=== PATIENT | male | born 1975 | race Caucasian/White ===

== ENCOUNTER 2020-02-21 16:25 | Emergency (ER) | payer SELFPAY ==
[2020-02-21 16:31] VITALS: BP 134/86; PULSE 77; RESP 16; TEMP 36.6; O2SAT 99; BMI 25.1
--- NOTE | 2020-02-21 16:36 | USR_ITS ---
PROCEDURE INFORMATION: Exam: US Scrotum Exam date and time: 02/21/2020 4:40 PM Age: 44 years old Clinical indication: Scrotum pain; Patient HX: Pain started at midnight. PT states he has had this before but it always went away and has never been seen for it. ; Additional info: Testicular pain and swelling TECHNIQUE: Imaging protocol: Real-time ultrasound of the scrotum and contents with color Doppler and image documentation. COMPARISON: No relevant prior studies available. FINDINGS: Right testicle: Normal. No mass. No torsion. Normal vascular flow. Right testicle measures 2.7 cm x 1.9 cm x 4.2 cm Left testicle: Normal. No mass. No torsion. Normal vascular flow. Left testicle measures 4.5 cm x 3 cm x 2.1 cm Epididymides: Left spermatocele 3.6 mm by 2 mm x 2.5 mm the left epididymis head measures 0.86 cm x 1.1 cm. The right epididymis measures 7.8 mm x 9.8 mm Scrotum: Bilateral hydrocele larger in volume on the left side. There is debris present within the left hydrocele. US/US scrotum [id number] IMPRESSION: 1. Negative for intrinsic testicular abnormalities. 2. Small left epididymal head cyst. 3. Bilateral hydrocele as described
--- NOTE | 2020-02-21 16:49 | W.ED.MALEGU ---
Documented by User: Abdiel George DO 02/24/20 09:07 HPI - Male Genitourinary General: Chief complaint: Urogenital-Male Stated complaint: ACUTE TESTICULAR PAIN/SENT FROM URGENT CARE Time Seen by Provider: 02/21/20 16:42 PFS ED PFSH: Social History Smoking and tobacco status: never smoked Current gender identity: Male Course Vital Signs: Vital signs: Vital Signs Temperature 97.8 F 02/21/20 16:31 Pulse Rate 67 02/21/20 19:07 Respiratory Rate 17 02/21/20 19:07 Blood Pressure 125/80 02/21/20 19:07 Pulse Oximetry 99 02/21/20 19:07 MDM - Male MDM Narrative: Medical decision making narrative: Patient assigned to me. I did not see the patient he was seen by Mor Brumfield and Dr. Herrera please see their notes. Lab Data: Labs: Lab Results 02/21/20 02/21/20 02/21/20 Range/Units 16:49 16:49 17:15 WBC 6.4 (4.0-10.0) 10^3/ uL RBC 4.65 (4.1-5.3) 10^6/u L Hgb 13.5 (11.7-16.6) g/dL Hct 41.3 L (42.0-52.0) % MCV 88.8 (80-94) fL MCH 29.0 (28.0-34.0) pg MCHC 32.7 (30.0-36.0) g/dL RDW 13.2 (12.1-15.1) % Plt Count 261 (130-400) 10^3/c mm MPV 9.3 (7.4-10.4) fL Neut % (Auto) 41.4 % Lymph % (Auto) 49.6 % [place] % (Auto) 7.1 % Eos % (Auto) 1.1 % Baso % (Auto) 0.6 % Neut # (Auto) 2.6 (1.8-7.7) 10^3/u L Lymph # (Auto) 3.2 (0.8-4.8) 10^3/u L [place] # (Auto) 0.5 (0.2-0.9) 10^3/u L Eos # (Auto) 0.1 (0.0-0.8) 10^3/u L Baso # (Auto) 0.0 (0.0-0.1) 10^3/u L Nucleated RBC % (a uto) 0 % Nucleated RBCs # 0.0 /100WBC Sodium 139 (136-145) mmol/L Potassium 4.1 (3.5-5.1) mmol/L Chloride 101 (98-107) mmol/L Carbon Dioxide 24 (22-29) mmol/L Anion Gap 18.1 (5-19) BUN 15 (6-20) mg/dL Creatinine 0.9 (0.7-1.2) mg/dL GFR Calculation 92.5 (90-130) mL/min Glucose 103 (65-115) mg/dL Calculated Osmolal ity 285 (285-295) mOsm/k g Calcium 9.8 (8.5-10.5) mg/dL Total Bilirubin 0.3 (0.15-1.2) mg/dL AST 14 (0-40) U/L ALT 12 (0-41) U/L Alkaline Phosphata se 65 (40-130) IU/L Total Protein 7.6 (6.6-8.7) g/dL Albumin 4.6 (3.5-5.2) g/dL Globulin 3.0 (1.3-4.6) g/dL Urine Color Yellow (Yellow) Urine Appearance Clear (CLEAR) Urine pH 7 (5-7) Ur Specific Gravit y 1.005 (1.005-1.030) Urine Protein Neg (Negative) Urine Glucose (UA) Norm (Normal) Urine Ketones Negative (Negative) Urine Blood Neg (Negative) Urine Nitrate Negative (Negative) Urine Bilirubin Neg (NEGATIVE) Urine Urobilinogen Norm (Negative) mg/dL Ur Leukocyte Kim ase Negative (Negative) Urine RBC None (0-2) /hpf Urine WBC None (0-5) /hpf Ur Squamous Epith Cells Rare (0-5) Urine Bacteria None (NONE) Discharge Plan Discharge Patient Disposition: Home, Self-Care Clinical Impression: Epididymitis Condition: Stable Prescriptions: [place] 5-325 mg tablet 1 tab PO Q6H PRN (Reason: pain) 5 Days Qty: 20 RF: 0 Cipro 500 mg tablet 500 mg PO BID Qty: 20 RF: 0 No Action Aleve 220 mg Tablet 220 mg PO Q12H PRN (Reason: Pain) RF: 0 Discharge Orders: Discharge Order (Routine); Ordered 02/21/20 Ordered By: Leona Zhao Referrals: Deepak Bagley DO [Primary Care Provider] - 1-3 days Discharge Diet: Advance as tolerated Discharge Activity: Increase activity as tolerated Patient Instructions: Epididymitis (ED) Activity Restrictions/Additional Instructions: Please return to the ER immediately for any of the signs or symptoms listed on your discharge instruction sheets, worsening/changing of your symptoms, you are not getting better as quickly as expected, or for ANY other cause or concerns. Discharge Date/Time: 02/21/20 19:08 Coding Level of Care Code ED Environmental Project Manager for Chg Fwd Exam Comprehensive Documented by User: Leona Zhao 02/21/20 19:44 HPI - Male Genitourinary General: Chief complaint: Urogenital-Male Stated complaint: ACUTE TESTICULAR PAIN/SENT FROM URGENT CARE Time Seen by Provider: 02/21/20 16:42 History of Present Illness: HPI Narrative: Chris is a nice 44-year-old male who comes in complaining of left testicular pain. He has had similar pains in the past but no cause could ever be determined. He denies urinary frequency or urgency. He denies fevers or chills. His pain is primarily in the back of the left testicle. Otherwise he denies any skin rashes, fevers or any other complaints at this time. Associated symptoms: Deny dysuria, hematuria, nausea, urinary incontinence or vomiting Review of Systems General: Reports: other (negative unless marked) Const: Denies: fever, chills, body aches, fatigue, malaise or diaphoresis Eyes: Denies: change in vision or blurry vision ENMT: Denies: throat pain, painful swallowing, hoarseness, ear pain, ear discharge, Change in hearing or nasal discharge Card: Denies: chest pain, palpitations, irregular heart rhythm, syncope, pre-syncope, shortness of breath on exertion or shortness of breath when lying down Resp: Denies: shortness of breath, productive cough, non-productive cough, wheezing, coughing up blood or chest congestion GI: Denies: abdominal pain, nausea, vomiting, vomiting blood, coffee grounds in vomit, diarrhea, constipation, cramping, blood in stool or black tarry stool : Denies: flank pain, difficulty urinating, painful urination, urinary frequency, urinary urgency, decreased urine ouput, urinary incontinence or blood in urine Musc: Denies: neck pain, back pain, extremity pain, extremity swelling, joint pain, joint swelling, joint warmth or joint stiffness Skin/Breast: Denies: rash, skin tenderness or yellow skin Neuro: Denies: headache, numbness in extremities, weakness in extremities, changes in sensation, lack of coordination, difficulty walking, dizziness, vertigo or confusion Endo: Denies: excessive thirst, tired all the time, cold intolerance, excessive sweating, flushing or hot flashes Neftali/Lymph: Denies: easy bruising, easy bleeding, petechiae or enlarged lymph nodes All/Imm: Denies: hives, throat swelling, tongue swelling, facial swelling or acute wheezing PFSH ED PFSH: Social History Smoking and tobacco status: never smoked Current gender identity: Male Physical Exam Const: COMMON NORMALS: no apparent distress, oriented x3, no limitations, healthy appearing and well nourished EXAM LIMITATIONS: no altered mental status GENERAL APPEARANCE: cooperative, well kempt and well developed ORIENTATION/CONSCIOUSNESS: Yes awake HENMT: COMMON NORMALS: normocephalic, head/scalp atraumatic, hearing grossly normal bilaterally, external ears normal, EAC's normal, external nose normal and moist oral mucous membranes HEAD & SCALP: normal to inspection, normocephalic and atraumatic FACE & SINUS: normal facial exam and face symmetric NOSE: external nose normal and nares normal EXTERNAL EAR: Yes external ears normal EXTERNAL AUDITORY CANAL: EAC's normal MOUTH: oral and palatal mucosa normal and tongue normal Eye: COMMON NORMALS: PERRL, EOMs intact bilaterally, conjunctivae normal and no scleral icterus GENERAL EYE: normal appearance of both eyes and normal light reflex CONJUNCTIVA: Yes conjunctivae normal SCLERA: sclerae normal CORNEA: Yes corneas normal PUPIL: Yes PERRL DIRECT OPHTHALMOSCOPY: Yes normal light reflex Neck/C-Spine: COMMON NORMALS: full ROM, no lymphadenopathy, supple, no meningeal signs and no JVD GENERAL: Yes normal visual inspection and Yes trachea midline CERVICAL SPINE: Yes cervical ROM normal Chest: COMMONS NORMALS: inspection of chest normal and palpation of chest normal Resp: COMMON NORMALS: normal respiratory effort, no retractions, no use of accessory muscles and clear to auscultation bilaterally EFFORT & INSPECTION: Yes able to speak in complete sentences AUSCULTATION: clear to auscultation bilaterally Cardio: COMMON NORMALS: no JVD, regular rate, regular rhythm, S1 normal heart sound, S2 normal heart sound, no gallops, no clicks, no murmurs and no rub JUGULAR VENOUS DISTENTION: no JVD RATE: regular rate RHYTHM: regular rhythm HEART SOUNDS: S1 normal and S2 normal GI: COMMON NORMALS: soft to palpation, non-tender, no hepatosplenomegaly and no masses INSPECTION: Yes normal to inspection PALPATION: Yes soft and Yes no hepatosplenomegaly : COMMON NORMALS: Yes no CVA tenderness BLADDER/KIDNEY EXAM: Yes no CVA tenderness MALE GROIN/PERINEUM EXAM: No erythema and No inguinal lymphadenopathy PENIS: normal penis MEATUS: meatus normal SCROTUM: Yes testes descended bilaterally, Yes cremasteric reflex present, No erythematous and No ecchymosis TESTES: Yes epididymal tenderness (Left-sided) Back/Pelvis: COMMON NORMALS: no CVA tenderness, thoracic and lumbar spine normal to inspection, no thoracic nor lumbar tenderness and thoraco-lumbar ROM normal Extremity: COMMON NORMALS: normal to inspection, full ROM, normal capillary refill, no joint enlargement, no clubbing, cyanosis or edema and no calf tenderness Neuro: COMMON NORMALS: oriented x3, CN's II-XII intact bilaterally, moves all extremities, no focal motor deficits and no sensory deficits noted MENINGEAL SIGNS: Yes no meningeal signs Psych: COMMON NORMALS: mental status grossly normal, thought process normal, cooperative, affect normal, speech normal and activity/motor behavior normal APPEARANCE: Yes well kempt SPEECH: Yes normal speech THOUGHT PROCESS: normal thought process Skin: COMMON NORMALS: no rashes or lesions noted, skin turgor normal, no jaundice, no petechiae and no mottling GENERAL SKIN EXAM: no rashes or lesions noted and turgor normal Course Vital Signs: Vital signs: Vital Signs Temperature 97.8 F 02/21/20 16:31 Pulse Rate 67 02/21/20 19:07 Respiratory Rate 17 02/21/20 19:07 Blood Pressure 125/80 02/21/20 19:07 Pulse Oximetry 99 02/21/20 19:07 MDM - Male MDM Narrative: Medical decision making narrative: Patient's exam and history are consistent with epididymitis. Ultrasound is inconclusive. I will go and treat him for epididymitis. He is aware that he will need to return if his symptoms worsen but at this time I see no sign of testicular torsion or other acute life-threatening illness. Lab Data: Attestation: I reviewed the patient's lab results. Labs: Lab Results 02/21/20 02/21/20 02/21/20 Range/Units 16:49 16:49 17:15 WBC 6.4 (4.0-10.0) 10^3/ uL RBC 4.65 (4.1-5.3) 10^6/u L Hgb 13.5 (11.7-16.6) g/dL Hct 41.3 L (42.0-52.0) % MCV 88.8 (80-94) fL MCH 29.0 (28.0-34.0) pg MCHC 32.7 (30.0-36.0) g/dL RDW 13.2 (12.1-15.1) % Plt Count 261 (130-400) 10^3/c mm MPV 9.3 (7.4-10.4) fL Neut % (Auto) 41.4 % Lymph % (Auto) 49.6 % [place] % (Auto) 7.1 % Eos % (Auto) 1.1 % Baso % (Auto) 0.6 % Neut # (Auto) 2.6 (1.8-7.7) 10^3/u L Lymph # (Auto) 3.2 (0.8-4.8) 10^3/u L [place] # (Auto) 0.5 (0.2-0.9) 10^3/u L Eos # (Auto) 0.1 (0.0-0.8) 10^3/u L Baso # (Auto) 0.0 (0.0-0.1) 10^3/u L Nucleated RBC % (a uto) 0 % Nucleated RBCs # 0.0 /100WBC Sodium 139 (136-145) mmol/L Potassium 4.1 (3.5-5.1) mmol/L Chloride 101 (98-107) mmol/L Carbon Dioxide 24 (22-29) mmol/L Anion Gap 18.1 (5-19) BUN 15 (6-20) mg/dL Creatinine 0.9 (0.7-1.2) mg/dL GFR Calculation 92.5 (90-130) mL/min Glucose 103 (65-115) mg/dL Calculated Osmolal ity 285 (285-295) mOsm/k g Calcium 9.8 (8.5-10.5) mg/dL Total Bilirubin 0.3 (0.15-1.2) mg/dL AST 14 (0-40) U/L ALT 12 (0-41) U/L Alkaline Phosphata se 65 (40-130) IU/L Total Protein 7.6 (6.6-8.7) g/dL Albumin 4.6 (3.5-5.2) g/dL Globulin 3.0 (1.3-4.6) g/dL Urine Color Yellow (Yellow) Urine Appearance Clear (CLEAR) Urine pH 7 (5-7) Ur Specific Gravit y 1.005 (1.005-1.030) Urine Protein Neg (Negative) Urine Glucose (UA) Norm (Normal) Urine Ketones Negative (Negative) Urine Blood Neg (Negative) Urine Nitrate Negative (Negative) Urine Bilirubin Neg (NEGATIVE) Urine Urobilinogen Norm (Negative) mg/dL Ur Leukocyte Kim ase Negative (Negative) Urine RBC None (0-2) /hpf Urine WBC None (0-5) /hpf Ur Squamous Epith Cells Rare (0-5) Urine Bacteria None (NONE) Imaging Data: US: My impression: Ultrasound scrotum, technologist interpretation -no torsion. Increased blood flow to the left epididymis. Small hydrocele and small spermatocele. Discharge Plan Discharge Patient Disposition: Home, Self-Care Clinical Impression: Epididymitis Condition: Stable Prescriptions: [place] 5-325 mg tablet 1 tab PO Q6H PRN (Reason: pain) 5 Days Qty: 20 RF: 0 Cipro 500 mg tablet 500 mg PO BID Qty: 20 RF: 0 No Action Aleve 220 mg Tablet 220 mg PO Q12H PRN (Reason: Pain) RF: 0 Discharge Orders: Discharge Order (Routine); Ordered 02/21/20 Ordered By: Leona Zhao Referrals: Deepak Bagley DO [Primary Care Provider] - 1-3 days Discharge Diet: Advance as tolerated Discharge Activity: Increase activity as tolerated Patient Instructions: Epididymitis (ED) Activity Restrictions/Additional Instructions: Please return to the ER immediately for any of the signs or symptoms listed on your discharge instruction sheets, worsening/changing of your symptoms, you are not getting better as quickly as expected, or for ANY other cause or concerns. Discharge Date/Time: 02/21/20 19:08 Coding Level of Care Code ED Environmental Project Manager for Amber Fwd Exam Comprehensive
[2020-02-21 16:55] LABS: Basophils % 0.6 %; Eosinophils # 0.1 10^3/uL (0.0-0.8); Eosinophils % 1.1 %; Hematocrit 41.3 % (42.0-52.0); Hemoglobin 13.5 g/dL (11.7-16.6); Lymphocytes # 3.2 10^3/uL (0.8-4.8); Lymphocytes % 49.6 %; Mean Corpuscular HGB Conc 32.7 g/dL (30.0-36.0); Mean Corpuscular Volume 88.8 fL (80-94); Mean Platelet Volume 9.3 fL (7.4-10.4); Monocytes # 0.5 10^3/uL (0.2-0.9); Monocytes % 7.1 %; Neutrophils # 2.6 10^3/uL (1.8-7.7); Neutrophils % 41.4 %; Nucleated Red Blood Cells % 0 %; Platelet Count 261 10^3/cmm (130-400); Red Blood Count 4.65 10^6/uL (4.1-5.3); Red Cell Distribution Width 13.2 % (12.1-15.1); White Blood Count 6.4 10^3/uL (4.0-10.0)
[2020-02-21 17:12] LABS: Alanine Aminotransferase 12 U/L (0-41); Albumin Level 4.6 g/dL (3.5-5.2); Alkaline Phosphatase 65 IU/L (40-130); Anion Gap 18.1 (5-19); Aspartate Amino Transferase 14 U/L (0-40); Blood Urea Nitrogen 15 mg/dL (6-20); Calcium 9.8 mg/dL (8.5-10.5); Carbon Dioxide 24 mmol/L (22-29); Chloride 101 mmol/L (98-107); Glomerular Filtration Rate 92.5 mL/min (90-130); Glucose 103 mg/dL (65-115); Osmolality Calculated 285 mOsm/kg (285-295); Potassium 4.1 mmol/L (3.5-5.1); Sodium 139 mmol/L (136-145); Total Bilirubin 0.3 mg/dL (0.15-1.2); Total Protein 7.6 g/dL (6.6-8.7)
[2020-02-21 17:50] LABS: Bilirubin Urine Neg (NEGATIVE); Blood Urine Neg (Negative); Glucose Urine UA Norm (Normal); Ketones Urine Negative (Negative); Leukocyte Esterase Urine Negative (Negative); Nitrate Urine Negative (Negative); Protein Urine Neg (Negative); Specific Gravity, Urine 1.005 (1.005-1.030); Urine Appearance Clear (CLEAR); Urine Color Yellow (Yellow); Urobilinogen Urine Norm (Negative); pH Urine 7 (5-7)
[2020-02-21 17:54] LABS: Squamous Epithelial Cell Urine RARE (0-5)
[2020-02-21 17:55] LABS: Add Urine Culture? No
[2020-02-21] MEDS: ciprofloxacin 500 mg Tablet PO (18:46)
[2020-02-21] MEDS: ondansetron 4 MG Tablet PO (18:46)
[2020-02-21] MEDS: HYDROcodone-acetaminophen 5-325 mg Tablet 1 TAB PO (18:47)
[2020-02-21] MEDS: ibuprofen 200 mg Tablet PO (18:47)
[2020-02-21 19:07] VITALS: BP 125/80; PULSE 67; RESP 17; O2SAT 99
== END 2020-02-21 19:08 | disposition home or self-care (01) ==
PROVIDERS: Physician Assistant; Emergency Provider Emergency Medicine; Family Provider Electrodiagnostic Medicine; PCP Electrodiagnostic Medicine
DX: N45.1 Epididymitis (principal); N43.3 Hydrocele, unspecified; N43.41 Spermatocele of epididymis, single
CPT/HCPCS: 12345; 36415; 76870; 80053; 81001; 85025; 87491; 87591; 99283; A9270; Q0162

== ENCOUNTER → 2020-03-02 14:05 | Outpatient (BNVA) | payer OTHER, SELFPAY | PROVIDERS: Family Provider Electrodiagnostic Medicine; PCP Electrodiagnostic Medicine; Visit Provider Counselor Professional | DX: F41.1 Generalized anxiety disorder (principal) | CPT/HCPCS: 90834 ==

== ENCOUNTER → 2020-04-07 11:08 | Outpatient (BNVA) | payer OTHER, SELFPAY | PROVIDERS: Family Provider Electrodiagnostic Medicine; PCP Electrodiagnostic Medicine; Visit Provider Counselor Professional | DX: F41.1 Generalized anxiety disorder (principal) | CPT/HCPCS: 90832 ==

== ENCOUNTER → 2024-11-01 16:00 | Outpatient (BNVA) | payer OTHER, SELFPAY | PROVIDERS: Family Provider Electrodiagnostic Medicine; PCP Electrodiagnostic Medicine; Visit Provider Emergency Medicine | DX: S69.92XA Unspecified injury of left wrist, hand and finger(s), initial encounter (principal); M20.029 Boutonniere deformity of unspecified finger(s); X58.XXXA Exposure to other specified factors, initial encounter | CPT/HCPCS: 73130 ==

== ENCOUNTER → 2025-08-16 12:41 | Outpatient (BNVA) | payer OTHER, SELFPAY | PROVIDERS: Family Provider Electrodiagnostic Medicine; PCP Electrodiagnostic Medicine; Visit Provider Nurse Practitioner | DX: M25.522 Pain in left elbow (principal); S59.902A Unspecified injury of left elbow, initial encounter; X58.XXXA Exposure to other specified factors, initial encounter | CPT/HCPCS: 73080 ==

== ENCOUNTER 2025-08-18 15:28 | Outpatient (CLI) | payer OTHER, SELFPAY ==
--- NOTE | 2025-08-18 16:00 | MR_ITS ---
WS: [id number] MRI LEFT ELBOW WITHOUT CONTRAST. COMPARISON: Elbow radiograph 08/16/2025 Multiplanar, multisequence imaging is performed without contrast. Feathery like increased T2 signal surrounding the distal biceps tendon and the biceps muscle. There is a fluid gap involving the distal biceps tendon. There is a high-grade biceps tendon tear distally. There are a few strands of low signal biceps tendon remaining extending to the radial tuberosity. The brachialis tendon appears intact. There is a very small amount of fluid adjacent to the brachialis tendon but this is probably related to the high-grade tear of the adjacent biceps tendon. No marrow edema or fracture identified. Very small joint effusion. No intra- articular bodies. Ulnar and radial collateral ligaments are normal signal. Common extensor and flexor tendons are normal. No osteochondral lesions. MR/MR elbow LT wo con* [id number] IMPRESSION: 1. High-grade tear involving the distal biceps tendon at the radial tuberosity . There are a few very small strands of the tendon remaining extending to the r adial tuberosity. 2. Mild distal biceps muscle strain. 3. No fractures or marrow edema.
== END 2025-08-18 15:29 | disposition home or self-care (01) ==
PROVIDERS: PCP Family Medicine; Visit Provider Nurse Practitioner
DX: S46.212A Strain of muscle, fascia and tendon of other parts of biceps, left arm, initial encounter (principal); X58.XXXA Exposure to other specified factors, initial encounter
CPT/HCPCS: 73221

== ENCOUNTER 2025-08-20 10:08 | Outpatient (CLI) | payer OTHER, SELFPAY | END 2025-08-20 10:09 | disposition home or self-care (01) | LOC: SPT 10:08 | PROVIDERS: PCP Family Medicine; Visit Provider Nurse Practitioner | DX: Z46.89 Encounter for fitting and adjustment of other specified devices (principal); S59.902D Unspecified injury of left elbow, subsequent encounter; X58.XXXD Exposure to other specified factors, subsequent encounter | CPT/HCPCS: L3761 ==

== ENCOUNTER → 2025-08-20 11:26 | Outpatient (BNVA) | payer OTHER, SELFPAY | PROVIDERS: PCP Family Medicine; Visit Provider Nurse Practitioner | DX: Z01.818 Encounter for other preprocedural examination (principal) | CPT/HCPCS: 36415; 80053; 81001; 85025 ==

== ENCOUNTER → 2025-08-26 11:40 | Day surgery (SDC) | payer OTHER, SELFPAY ==
[2025-08-26] VITALS (10 sets, daily range): BP systolic 97–132; BP diastolic 38–108; PULSE 70–110; RESP 10–18; TEMP 36.4–36.6; O2SAT 98–100; BMI 22.8
[2025-08-26] MEDS: acetaminophen 1,000 MG/100 ML PIGGYBACK 400 MG IV (12:30)
--- NOTE | 2025-08-26 13:02 | ANES.PREANE2 ---
Pre-Anesthetic Assessment Height/Weight: Height 5 ft 9 in Weight 155 lb Temp Pulse Resp BP Pulse Ox O2 Del Method 97.6 F 110 H 18 132/108 98 Room Air 08/26/25 12:07 08/26/25 12:07 08/26/25 12:07 08/26/25 12:07 08/26/25 12:07 08/26/25 12:07 Preop Diagnosis: Biceps tendon rupture Operation Date: 08/26/25 13:10 Proposed Procedures p Distal Bicep Tendon Repair Distal Bicep Repair(Left) - Aym Rob MD Was Beta Abram taken within 24 hours: N/A Was Clonidine taken within 24 hours: N/A Last intake: Intake Last Liquid Date 08/25/25 Last Liquid Time 18:00 Last Solid Date 08/25/25 Last Solid Time 18:00 Social No alcohol and No tobacco Exam alert, oriented x 3, clear to auscultation bilaterally and regular rate & rhythm Airway Submandibular: within normal limits Cervical ROM: within normal limits Mallampati: Class I Dentition: full Anesthetic Plan ASA status: 1 Anesthesia: General and Regional (specify below) Other: No prior issues with anesthesia NPO since yesterday evening Denies any cardiac or pulmonary issues METs greater than 4 Plan for general anesthesia with preoperative block Medications/Allergies Home Medications ?Medication ?Instructions ?Recorded ?Confirmed ?Last Taken ?Type naproxen sodium 220 mg tablet 220 mg PO Q12H PRN Pain 02/21/20 08/25/25 02/21/20 History (Aleve) bupropion HCl 300 mg 24 hr tablet, 300 mg PO QAM 08/16/25 08/26/25 08/26/25 02:00 History extended release tramadol 50 mg tablet 50 mg PO Q6H PRN pain #28 tabs 08/16/25 08/25/25 Unknown Rx Range of motion Left arm ELbow #1 ea 08/20/25 08/20/25 Unknown Rx brace Locked at 90 Allergies Allergy/AdvReac Type Severity Reaction Status Date / Time No Known Allergies Allergy Verified 08/26/25 12:10 Current Medications Generic Name Dose Route Start Last Admin Trade Name Freq PRN Reason Stop Dose Admin Sodium Chloride 1,000 mls @ 30 mls/hr 08/26/25 12:00 08/26/25 12:39 Sodium Chloride 0.9% IV 08/27/25 11:59 30 mls/hr .Q24H LUCY Administration PFSH Anesthesia Medical History (Updated 08/20/25 @ 14:38 by LEEANN Vallecillo) Rupture of left distal biceps tendon, initial encounter Social History Smoking and tobacco/nicotine status: never used tobacco/nicotine Current gender identity: Male
--- NOTE | 2025-08-26 13:03 | ANES.PROC ---
Anesthesia Procedures Procedure/Date: 08/26/25 Nerve Block ^: Nerve Block 1: Main Anesthesia: other (100 mcg fentanyl and 2 mg Versed) Time Out Performed: Yes Consent: requested by attending/covering physician and from patient Laterality: Left Nerve block location: supraclavicular Anesthesia monitors applied: pulse oximetry, EKG, BP cuff and oxygen Nerve block position: supine Anesthetic Used: ropivicaine 0.5% Amount of anesthesia used (mL): 30 Ultrasound used to: recognize landmarks Nerve Stimulator Used?: Yes Interscalene/Femoral BLK: other needle (pjunk 4inch) Injection: neg aspiration of heme Patient Tolerated Procedure: well Complications: none Additional Comments: Decadron 4 mg added to block
[2025-08-26] MEDS: ceFAZolin 2,000 mg SDV 2000 MG IVP (14:20)
--- NOTE | 2025-08-26 14:42 | P.HPUD_ITS ---
Surgery/Procedure H&P Update DATE OF PROCEDURE: August 27, 2025 DATE H&P PERFORMED: 08/26/25 H&P UPDATE INFORMATION: I have reviewed H&P completed within last 30 days, I have examined patient prior to procedure, No changes to prior documentation, H&P is in [facility] EMR on date indicated and Risks and benefits of the procedure reviewed PREOP DIAGNOSIS: Left Biceps tendon rupture PLANNED PROCEDURE: Operation Date: 08/26/25 13:10 Proposed Procedures p Distal Bicep Tendon Repair Distal Bicep Repair(Left) - Amy Rob MD Related Problem List Diagnoses 1. Rupture of left distal biceps tendon, initial encounter: Qualifiers: Encounter type: initial encounter Laterality: left
[2025-08-26] MEDS: ceFAZolin 1,000 mg SDV 1000 MG IRRIGATION (15:36)
--- NOTE | 2025-08-26 16:27 | PM.OP ---
Operative Report Date of procedure: August 26, 2025 Pre-op diagnosis: Left distal biceps tendon rupture Post-op diagnosis: Left distal biceps tendon rupture Post-op findings: Acute on subacute tear left distal biceps tendon Procedure done: Repair left distal biceps tendon utilizing the Arthrex distal biceps button with PRP placed at the conclusion of the surgery Implants: Arthrex distal biceps tendon button Specimens removed/disposition: None Pathology: None Surgeon: Amy Rob MD Economics Department Chair: MIGUEL Vallecillo, who services were required for positioning, retraction, closure, and completion of the surgical procedure. Anesthesia: General (Per LMA, ASA 1, with preoperative interscalene block) Estimated blood loss (mL): 5 Tourniquet time (min): 67 (At 250 mmHg) IV fluids (mL): 900 Urine output (mL): 0 (No Apodaca) Brief History: This 50-year-old presents today for same-day surgery for distal biceps tendon repair on the left. Risks and complications of surgery were discussed with him preoperatively. Options were also discussed. The patient wished to proceed with repair. Consents were signed in the office. On the day of surgery, further questions were answered and the surgical procedure was reviewed. Procedure: The patient was brought to the operating theater. The patient had a general anesthesia per LMA, ASA 1. He also had a preoperative interscalene block. Tourniquet was placed after prepping and draping. The tourniquet utilized was a sterile tourniquet. The patient was also given Ancef 2 g preoperatively. The arm was then prepped and draped with DuraPrep in usual fashion with the arm draped free. A surgical pause was performed. At the time, the surgical pause, we confirmed the site and side of surgery. We also confirmed the patient's identity, appropriate and timely administration of preoperative antibiotics and preoperative surgical markings. Preoperatively, the elbow was palpated, and there was a small palpable cord of biceps tendon consistent with MRI findings. Intraoperatively, fluoroscopy was used to determine appropriate location of the biceps tuberosity. An incision was made obliquely centering over the tuberosity. Skin was incised and blunt dissection was used to enter and dissect down onto the radius. Radial tuberosity was palpable. Retractors were placed with care being taken to protect the neurovascular structures. The procedure was performed with the arm in full supination. Retractors utilized did not wrap around the radius taking care to protect the posterior interosseous nerve. The biceps tendon was identified. It wrapped around the radius consistent with the history of what appears to be an acute on subacute biceps tendon tear. It was attached to the radial tuberosity area. This was elevated off the tuberosity with elevators without difficulty. There was irregularity and inflammation in the area of the tuberosity. This was scraped to provide a good bed for healing of the biceps to the radial tuberosity. The biceps tendon was tagged with an 0 Vicryl. The end of the biceps tendon was freshened with a scalpel. The biceps tendon reached the radial tuberosity without significant difficulty. A baseball type whipstitch was placed with multiple passes through the tendon. Suture utilized was the Arthrex endless loop for the whipstitch. Attention at this point was directed to placement of the Arthrex distal biceps tendon button. The tuberosity was identified. K wire was passed from the tuberosity through the opposite cortex and was visualized on fluoroscopy to be in appropriate position. At that point, the button was to be utilized. Suture in the tendon was passed through the button so that it could be used to seesaw the tendon down onto the greater tuberosity. The button was passed through both cortices. Care was taken to ensure that it passed beyond the cortices. The button was then disconnected from the screw at the end of the home improvement advisor, and the home improvement advisor was pushed in a slight amount further. The button was visualized on fluoroscopy. The suture which had been placed into the button was then pulled back to seat the button against the radial cortex. Positioning was confirmed on fluoroscopy. We then were able to ratchet the tendon down onto the greater tuberosity with the elbow at approximately 45 degrees of flexion. On fluoroscopy, the button was noted to be flipped and flattened against the radius. The wound was copiously irrigated. PRP was placed prior to closure. This was injected around the area of the repair. Following this, closure was accomplished with 2-0 Monocryl in the subcutaneous tissues. 4-0 running subcuticular was placed in the skin. Following this, Dermabond was placed with Steri-Strips and an OpSite. An ABD, followed by sterile soft roll, and an Balta wrap was used to complete the dressing. The patient was then placed in a hinged elbow brace locked at approximately 90 degrees of flexion. The patient was returned to recovery room in a satisfactory condition where he discharged home to follow-up in the office. There were no specimens. The procedure was well-tolerated. Related Problem List Diagnoses 1. Rupture of left distal biceps tendon, initial encounter:
--- NOTE | 2025-08-26 16:46 | XR_ITS ---
WS: [id number] XR elbow LT 2V 78939 REASON FOR EXAM: or pic, tendon repair FINDINGS: Biceps tendon repair with tendon anchor. Expected position and alignment. XR/XR elbow LT 2V [id number] IMPRESSION: Biceps tendon repair as above.
--- NOTE | 2025-08-26 17:00 | ANE.PACU2 ---
Inpatient post-anesthesia follow up: Airway intact: Yes Vital signs: Temperature 98 F Pulse Rate 70 Respiratory Rate 18 Blood Pressure 119/82 Pulse Oximetry 100 Oxygen Delivery Me thod Room Air Oxygen Flow Rate 6 Fraction of Inspir ed Oxygen Hydration adequate: Yes Nausea and vomiting: No Pain level: 1 Mental status: Baseline
== END | disposition home or self-care (01) ==
PROVIDERS: PCP Family Medicine; Visit Provider Specialist
PROC: (CPT 24341; principal; 2025-08-26 13:10)
DX: S46.212A Strain of muscle, fascia and tendon of other parts of biceps, left arm, initial encounter (principal); X58.XXXA Exposure to other specified factors, initial encounter; Z79.891 Long term (current) use of opiate analgesic
CPT/HCPCS: 24342; 73070; 76000; C1713; J0131; J0690; J1100; J2250; J2405; J2704; J7030; J9999

== ENCOUNTER 2025-10-01 07:36 | Outpatient (RCR) | payer OTHER, SELFPAY | END 2025-10-24 23:59 | disposition home or self-care (01) | LOC: SPT 07:36 | PROVIDERS: PCP Family Medicine; Visit Provider Specialist | DX: S46.212D Strain of muscle, fascia and tendon of other parts of biceps, left arm, subsequent encounter (principal); X58.XXXD Exposure to other specified factors, subsequent encounter | CPT/HCPCS: 97110; 97140; 97161; 97530 ==

== ENCOUNTER 2025-10-25 05:00 | Outpatient (RCR) | payer OTHER, SELFPAY | END 2025-11-24 23:59 | disposition home or self-care (01) | LOC: SPT 05:00 | PROVIDERS: PCP Family Medicine; Visit Provider Specialist | DX: S46.212D Strain of muscle, fascia and tendon of other parts of biceps, left arm, subsequent encounter (principal); M25.622 Stiffness of left elbow, not elsewhere classified; X58.XXXD Exposure to other specified factors, subsequent encounter | CPT/HCPCS: 97110 ==